=== PATIENT | male | born 1980 | race Caucasian/White ===

== ENCOUNTER → 2024-01-17 07:55 | Outpatient (REF) | payer BC, SELFPAY | LOC: HWRAD 07:55 | DX: R14.0 Abdominal distension (gaseous) (principal) | CPT/HCPCS: 76700 ==

== ENCOUNTER → 2024-02-08 10:59 | Outpatient (REF) | payer BC, SELFPAY | LOC: HWRAD 10:59 | PROVIDERS: FAMILY PHYSICIAN Internal Medicine | DX: R10.84 Generalized abdominal pain (principal); R89.9 Unspecified abnormal finding in specimens from other organs, systems and tissues | CPT/HCPCS: 74177; Q9967 ==